=== PATIENT | female | born 2000 | race Hispanic/Latino ===

== ENCOUNTER 2022-11-05 15:18 | Outpatient (CLI) | payer OTHER | END 2022-11-05 15:19 | disposition home or self-care (01) | LOC: CSHULT 15:18 | PROVIDERS: ATTEND Family Medicine | DX: Z34.02 Encounter for supervision of normal first pregnancy, second trimester (principal); Z3A.23 23 weeks gestation of pregnancy | CPT/HCPCS: 76805 ==

== ENCOUNTER 2022-12-31 12:43 | Day surgery (SDC) | payer OTHER ==
[2022-12-31 15:38] VITALS: BMI 35.2
== END 2022-12-31 18:30 | disposition home health service (06) ==
LOC: CSHLD/OP 12:43
PROVIDERS: ATTEND Family Medicine
DX: Z36.89 Encounter for other specified antenatal screening (principal)
CPT/HCPCS: 76815; 76819

== ENCOUNTER 2023-02-04 05:30 | Inpatient (IN) | payer MEDICAID, OTHER, SELFPAY ==
[2023-02-04 18:08] VITALS: BMI 33.6
[2023-02-04] MEDS: Lactated Ringer's 1,000 ML IV SCH (18:16)
[2023-02-04] MEDS ORDERED: Diphenoxylate HCl/Atropine Tablet PO PRN (18:18)
[2023-02-04] MEDS ORDERED: fentaNYL 50 mcg/mL 1 mL Vial SLOW IVP PRN (18:18)
[2023-02-04] MEDS ORDERED: Tranexamic Acid 1,000 MG/10 ML VIAL IVP PRN (18:18)
[2023-02-04] MEDS ORDERED: Promethazine HCl 25 MG/ML VIAL IM PRN (18:18)
[2023-02-04] MEDS ORDERED: Carboprost 250 MCG/ML AMP IM PRN (18:18)
[2023-02-04] MEDS ORDERED: HYDROcodone/Acetaminophen 5/325 mg Tablet PO PRN (18:18)
[2023-02-04] MEDS ORDERED: Lidocaine 1% (PF) 30 ML VIAL SC PRN (18:18)
[2023-02-04] MEDS ORDERED: Acetaminophen 500 MG TAB PO PRN (18:18)
[2023-02-04] MEDS ORDERED: Ondansetron PF 4 MG/2 ML Vial IVP PRN (18:18)
[2023-02-04] MEDS ORDERED: Misoprostol 200 MCG TAB PR PRN (18:18)
[2023-02-04] MEDS ORDERED: hydrALAZINE 20 MG/ML VIAL SLOW IVP PRN (18:18)
[2023-02-04] MEDS ORDERED: Ibuprofen 800 MG TAB PO PRN (18:18)
[2023-02-04] MEDS ORDERED: Methylergonovine 0.2 MG/ML VIAL IM PRN (18:18)
[2023-02-04] MEDS ORDERED: NS w/ Oxytocin 30 units 500 ML IV SCH ×3 (18:30)
[2023-02-04 18:39] LABS: Hematocrit 34.7 % (34.9-44.5); Hemoglobin 11.2 g/dL (12.0-15.5); Mean Corpuscular HGB CONC 32.3 g/dL (32.0-36.0); Mean Corpuscular Hemoglobin 22.9 pg (27.0-33.0); Mean Corpuscular Volume 70.8 fl (81.6-98.3); Mean Platelet Volume 11.3 fl (7.4-10.4); Platelet Count 327 10x3/uL (150-450); RBC Distribution Width 20.1 % (11.5-14.5); White Blood Cell (WBC) Count 12.9 10x3/uL (3.5-10.5)
[2023-02-04] MEDS ORDERED: Misoprostol 100 MCG TAB ONE (18:40)
[2023-02-04] MEDS: Misoprostol 100 MCG TAB VAG SCH ×2 (18:50→22:59)
[2023-02-04 19:13] LABS: HBSAg Index 0.19 S/CO (0-0.99); Hep B Surf Ag - L&D Non-Reactive S/CO (NonReactive); Syphilis Antibody Nonreactive (Nonreactive); Syphilis Antibody Index 0.04 S/CO (<1.00 Non-Reactive)
[2023-02-05] MEDS: Lactated Ringer's 1,000 ML IV SCH ×2 (03:00→19:19)
[2023-02-05] MEDS: Misoprostol 100 MCG TAB VAG SCH ×5 (04:57→22:39)
[2023-02-06] MEDS: Misoprostol 100 MCG TAB VAG SCH ×2 (02:04→05:32)
[2023-02-06] MEDS ORDERED: CEFAZOLIN 2 GM VIAL ONE (14:41)
[2023-02-06] MEDS ORDERED: Famotidine/PF 20 mg/2ml Vial ONE (14:41)
[2023-02-06] MEDS ORDERED: fentaNYL 50 mcg/mL 1 mL Vial ONE (15:29)
[2023-02-06] MEDS ORDERED: Morphine PF 10 MG/10 ML VIAL ONE (15:29)
[2023-02-06] MEDS ORDERED: Oxytocin 10 UNITS/ML VIAL ONE (15:30)
[2023-02-06] MEDS ORDERED: Ondansetron PF 4 MG/2 ML Vial ONE (15:30)
[2023-02-06] MEDS ORDERED: Phenylephrine 40 MG/NS 250 ML 250 ML ONE (15:36)
[2023-02-06] MEDS ORDERED: Promethazine HCl 25 MG/ML VIAL ONE (16:35)
[2023-02-06] MEDS ORDERED: PHENYLEPHRINE-NS 100 MCG/ML 10 ML SYRINGE ONE (16:36)
[2023-02-06] MEDS ORDERED: Ondansetron PF 4 MG/2 ML Vial IVP PRN ×2 (16:43→19:26)
[2023-02-06] MEDS ORDERED: Naloxone HCl 0.4 mg/ml Vial IVP PRN ×2 (16:43)
[2023-02-06] MEDS ORDERED: Meperidine HCl/PF 25 MG/ML VIAL SLOW IVP PRN (16:43)
[2023-02-06] MEDS ORDERED: Moisturizing Cream (Eucerin) 113 GM JAR TOP PRN (16:43)
[2023-02-06] MEDS ORDERED: diphenhydrAMINE 50 MG/ML VIAL IVP PRN (16:43)
[2023-02-06] MEDS ORDERED: Fentanyl 50 MCG/1 ML VIAL SLOW IVP PRN (16:43)
[2023-02-06] MEDS ORDERED: Promethazine HCl 25 MG/ML VIAL IM PRN ×2 (16:43→19:26)
[2023-02-06] MEDS ORDERED: L&D-HYDROmorphone 0.5 MG/0.5 ML SYRINGE SLOW IVP PRN (16:43)
[2023-02-06] MEDS ORDERED: Ondansetron HCl/PF 4 MG/2 ML Vial IVP PRN (16:43)
[2023-02-06] MEDS ORDERED: Naloxone HCl 0.4 mg/ml Vial IV PRN (16:43)
[2023-02-06] MEDS ORDERED: Promethazine HCl 25 MG SUPP PR PRN (16:43)
[2023-02-06] MEDS ORDERED: Ketorolac Tromethamine 30 MG/ML VIAL IVP SCH (16:45)
[2023-02-06] MEDS ORDERED: Communication Order-Pharmacy FS SCH (16:45)
[2023-02-06] MEDS: Ketorolac Tromethamine 30 MG/ML VIAL IVP PRN (18:29)
[2023-02-06] MEDS ORDERED: Bisacodyl 10 MG SUPP PR PRN (19:26)
[2023-02-06] MEDS ORDERED: Boostrix 0.5 ML (Tdap) VIAL (>/=7 yrs of age) IM ONE (19:26)
[2023-02-06] MEDS ORDERED: diphenhydrAMINE 25 MG CAP PO PRN (19:26)
[2023-02-06] MEDS ORDERED: Lanolin Ointment 7 GM TUBE TOP PRN (19:26)
[2023-02-06] MEDS ORDERED: hydrALAZINE 20 MG/ML VIAL SLOW IVP PRN (19:26)
[2023-02-07] MEDS: Ketorolac Tromethamine 30 MG/ML VIAL IVP PRN ×2 (00:20→06:13)
[2023-02-07] MEDS: Ferrous Sulfate 325 MG TAB PO SCH ×3 (05:07→21:21)
[2023-02-07] MEDS: Docusate 100 MG CAP PO SCH ×3 (05:07→21:21)
[2023-02-07 05:38] LABS: Hematocrit 28.8 % (34.9-44.5); Hemoglobin 9.1 g/dL (12.0-15.5); Mean Corpuscular HGB CONC 31.6 g/dL (32.0-36.0); Mean Corpuscular Hemoglobin 22.8 pg (27.0-33.0); Mean Corpuscular Volume 72.2 fl (81.6-98.3); Mean Platelet Volume 11.3 fl (7.4-10.4); Platelet Count 215 10x3/uL (150-450); RBC Distribution Width 19.6 % (11.5-14.5); Red Blood Cell (RBC) Count 3.99 10x6/uL (3.90-5.03); White Blood Cell (WBC) Count 9.6 10x3/uL (3.5-10.5)
[2023-02-07] MEDS: Prenatal Vitamin 1 TAB PO SCH (08:32)
[2023-02-07] MEDS: Lactated Ringer's 1,000 ML IV SCH (09:22)
[2023-02-07] MEDS: HYDROcodone/Acetaminophen 5/325 mg Tablet PO PRN ×3 (11:06→21:25)
[2023-02-07] MEDS: Ibuprofen 800 MG TAB PO SCH ×2 (13:57→21:21)
[2023-02-07] MEDS: Simethicone Chewable 80 MG TAB PO PRN (23:59)
[2023-02-08] MEDS: HYDROcodone/Acetaminophen 5/325 mg Tablet PO PRN ×5 (01:30→21:54)
[2023-02-08] MEDS: Simethicone Chewable 80 MG TAB PO PRN ×3 (05:53→21:54)
[2023-02-08] MEDS: Ibuprofen 800 MG TAB PO SCH ×3 (05:53→21:54)
[2023-02-08] MEDS: Ferrous Sulfate 325 MG TAB PO SCH ×2 (08:03→21:54)
[2023-02-08] MEDS: Prenatal Vitamin 1 TAB PO SCH (08:03)
[2023-02-08] MEDS: Docusate 100 MG CAP PO SCH ×2 (08:03→21:54)
[2023-02-08 19:43] VITALS: TEMP 98.3
[2023-02-09] MEDS: HYDROcodone/Acetaminophen 5/325 mg Tablet PO PRN ×2 (02:01→06:13)
[2023-02-09] MEDS: Simethicone Chewable 80 MG TAB PO PRN (02:01)
[2023-02-09] MEDS: Ibuprofen 800 MG TAB PO SCH (06:13)
[2023-02-09 07:38] VITALS: BP 107/58
[2023-02-09] MEDS: Docusate 100 MG CAP PO SCH (08:20)
[2023-02-09] MEDS: Ferrous Sulfate 325 MG TAB PO SCH (08:20)
[2023-02-09] MEDS: Prenatal Vitamin 1 TAB PO SCH (08:20)
== END 2023-02-09 10:45 | disposition home or self-care (01) | DRG 833 ==
LOC: CSHLD 17:38 → CSHPP 02-06 19:38
PROVIDERS: ADMIT Family Medicine; ATTEND Family Medicine
PROC: 3E0P7VZ Introduction of Hormone into Female Reproductive, Via Natural or Artificial Opening (ICD-10-PCS; principal; 2023-02-05)
DX: O36.5930 Maternal care for other known or suspected poor fetal growth, third trimester, not applicable or unspecified (principal); O61.9 Failed induction of labor, unspecified; Z3A.39 39 weeks gestation of pregnancy; Z37.0 Single live birth
CPT/HCPCS: 36415; 51702; 85027; 86780; 86850; 86900; 86901; 87340; J1200; J1885; J2274; J2310; J2405; J2550; J2590; J3010; J7120; S0028